=== PATIENT | female | born 1960 | race Caucasian/White ===

== ENCOUNTER → 2022-12-30 | Outpatient (CLI) | payer BC, SELFPAY ==
[2022-12-30 16:02] LABS: Thyroid Stim Hormone (TSH) 0.64 uIU/mL (0.358-3.74)
[2023-01-01 08:07] LABS: Thyroid Peroxidase AB 13 IU/mL (0-34)
[2023-01-02 08:50] LABS: PTHIN 34.8 pg/mL (18.4-80.1)
[2023-01-03 09:08] LABS: Anti-Nuclear Antibody Test Positive (.)
== END | disposition home or self-care (01) ==
LOC: MTLAB 11:29
PROVIDERS: Referring Provider Dermatology Pediatric Dermatology; Visit Provider Dermatology Pediatric Dermatology
DX: L64.8 Other androgenic alopecia (principal); B07.0 Plantar wart; L65.0 Telogen effluvium
CPT/HCPCS: 36415; 83970; 84439; 84443; 86038; 86376